=== PATIENT | female | born 1975 | race Two or more races ===

== ENCOUNTER 2022-05-25 01:11 | Emergency (ER) | payer OTHER ==
[~2022-05-25] VITALS: Ht 162.6 cm; Wt 68.0 kg
[2022-05-25] MEDS ORDERED: ONDANSETRON HCL/PF 4 MG/2 ML VIAL ONE (01:42)
--- NOTE | 2022-05-25 01:45 | NUR ---
PATIENT BIBSELF C/O DIARRHEA AND VOMITING SINCE YESTERDAY 10PM. PATIENT IS A/O X 4, RR EVEN AND UNLABORED NO SOB NOTED, PT CONNECTED TO WINTERIZER AND POX.
--- NOTE | 2022-05-25 01:47 | NUR ---
blood work collceted sent to lab
[2022-05-25 01:48] VITALS: BP 106/64
--- NOTE | 2022-05-25 01:56 | NUR ---
COVID SWAB COLLECTED
[2022-05-25] MEDS ORDERED: ONDANSETRON HCL/PF 4 MG/2 ML VIAL IVP ONE (02:00)
[2022-05-25] MEDS ORDERED: IV NS 0.9% 1,000 ML BAG IV ONE (02:00)
[2022-05-25 02:19] LABS: BASOPHILS % (AUTO) 0.3 % (0.0-2.0); EOSINOPHILS % (AUTO) 0.5 % (0.0-6.0); HEMATOCRIT 36 % (33-45); LYMPHOCYTES # (AUTO) 1.7 K/uL (0.8-4.8); LYMPHOCYTES % (AUTO) 10.5 % (20.0-44.0); MEAN CORPUSCULAR HGB CONC 33 g/dl (31.0-36.0); MEAN CORPUSCULAR VOLUME 93 fL (82-100); MONOCYTES # (AUTO) 0.9 K/uL (0.1-1.30); MONOCYTES % (AUTO) 5.7 % (2.0-12.0); NEUTROPHILS # (AUTO) 13.3 K/uL (1.8-8.9); PLATELET COUNT (AUTO) 218 K/uL (150-450); WHITE BLOOD COUNT (AUTO) 16.1 K/uL (4.3-11.0)
[2022-05-25 02:42] LABS: ALBUMIN 3.8 g/dL (3.4-5.0); BILIRUBIN,DIRECT 0.1 mg/dL (0.0-0.2); BILIRUBIN,TOTAL 0.3 mg/dL (0.2-1.0); CALCIUM, SERUM 8.4 mg/dL (8.5-10.1); CREATININE 0.6 mg/dL (0.6-1.3); TOTAL PROTEIN, SERUM 6.8 g/dL (6.4-8.2)
--- NOTE | 2022-05-25 02:55 | NUR ---
URINE SPECIMEN SENT TO LAB
[2022-05-25 03:47] LABS: BILIRUBIN,URINE NEGATIVE (NEGATIVE); COLOR,URINE YELLOW (YELLOW); LEUKOCYTE ESTERASE ,URINE NEGATIVE (NEGATIVE); NITRITE, URINE NEGATIVE (NEGATIVE); PH,URINE 5.5 (5.0-8.0); PROTEIN,URINE NEGATIVE (NEGATIVE); UGLUCOSE NEGATIVE (NEGATIVE); UROBILINOGEN,URINE 0.2 EU/dL (0.2)
[2022-05-25] MEDS ORDERED: ONDA4TAB5 PO (03:57)
--- NOTE | 2022-05-25 04:15 | NUR ---
Patient discharged to home in stable condition. Written and verbal after care instructions given. Patient verbalizes understanding of instruction.
== END 2022-05-25 04:15 | disposition home or self-care (01) ==
LOC: ER 01:14
DX: A08.4 Viral intestinal infection, unspecified (principal); E87.6 Hypokalemia; Z20.822 Contact with and (suspected) exposure to COVID-19; D72.829 Elevated white blood cell count, unspecified
CPT/HCPCS: 36415; 80048; 80076; 81003; 83690; 85025; 87426; 96361; 96374; 99283; A6403; C9803; J2405; J7030